=== PATIENT | male | born 1980 | race Two or more races ===

== ENCOUNTER 2020-01-25 07:29 | Emergency (ER) | payer SELFPAY ==
[~2020-01-25] VITALS: Ht 172.7 cm; Wt 84.4 kg
--- NOTE | 2020-01-25 07:37 | NUR ---
PT BIBA FROM [facility] D/T AGITATION. PT ADMITS TO METH USE. PT DELUSIONAL, INCOHERENT, VSS, RESPIRATIONS EVEN AND UNLABORED ON RA W/ NAD NOTED. PT CHANGED INTO GOWN, BELONGINGS PLACED TO LOCKER, SITTER AT BEDSIDE FOR SAFETY. WILL CONTINUE TO MONITOR
[2020-01-25] MEDS ORDERED: OLANZAPINE 5 MG TABLET ONE (07:41)
--- NOTE | 2020-01-25 07:45 | NUR ---
PT MEDICATED ORDERED
--- NOTE | 2020-01-25 07:56 | NUR ---
TELEGRAPH AND TELETYPE OPERATOR AT BEDSIDE.
[2020-01-25] MEDS ORDERED: OLANZAPINE 5 MG TABLET PO ONE (08:00)
[2020-01-25 08:11] LABS: BASOPHILS # (AUTO) 0.1 /CMM (0.0-0.2); BASOPHILS % (AUTO) 0.9 % (0.0-2.0); EOSINOPHILS % (AUTO) 1.2 % (0.0-6.0); HEMATOCRIT 50 % (39-51); LYMPHOCYTES # (AUTO) 2.4 /CMM (0.8-4.8); LYMPHOCYTES % (AUTO) 31.2 % (20.0-44.0); MEAN CORPUSCULAR HGB CONC 34 g/dl (31.0-36.0); MEAN CORPUSCULAR VOLUME 98 fL (80-96); MONOCYTES # (AUTO) 1.2 /CMM (0.1-1.30); MONOCYTES % (AUTO) 14.8 % (2.0-12.0); NEUTROPHILS # (AUTO) 4.1 /CMM (1.8-8.9); NEUTROPHILS % (AUTO) 51.9 % (43.0-81.0); PLATELET COUNT (AUTO) 305 /CMM (150-450); RED BLOOD CELL COUNT(AUTO) 5.12 MIL/uL (4.5-6.0); WHITE BLOOD COUNT (AUTO) 7.8 K/uL (4.3-11.0)
[2020-01-25] MEDS ORDERED: LORAZEPAM 1 MG TABLET ONE (08:23)
[2020-01-25] MEDS ORDERED: LORAZEPAM 1 MG TABLET PO ONE (08:30)
--- NOTE | 2020-01-25 08:33 | NUR ---
Patient refused to give a urine sample. Spit out the ativan tablets. aware.
--- NOTE | 2020-01-25 08:42 | NUR ---
Patient given written and verbal discharge instructions. Patient verbalizes understanding of instructions. Patient is ambulatory with steady gait. Refuses offer of halfway placement. Patient given list of available shelters in surrounding area.
[2020-01-25 08:44] VITALS: BP 125/66
[2020-01-25 08:45] LABS: CALCIUM, SERUM 9.9 mg/dL (8.5-10.1); CARBON DIOXIDE 28 mmol/L (21-32); CHLORIDE 103 mmol/L (98-107); CREATININE 1.3 mg/dL (0.6-1.3); GLUCOSE 113 mg/dL (74-106); POTASSIUM 4.3 mmol/L (3.5-5.1); SODIUM SERUM 138 mmol/L (136-145); UREA NITROGEN, BLOOD 13 mg/dL (7-18)
[2020-01-25 08:53] LABS: ALANINE AMINOTRANSFERASE 79 U/L (12-78); ALBUMIN 3.9 g/dL (3.4-5.0); ALCOHOL, BLOOD < 3 mg/dL (0-0); ALKALINE PHOSPHATASE 64 U/L (46-116); ASPARTATE AMINOTRANSFERASE 31 U/L (15-37); BILIRUBIN,DIRECT 0.3 mg/dL (0.0-0.2); BILIRUBIN,TOTAL 1.2 mg/dL (0.2-1.0); TOTAL PROTEIN, SERUM 8.3 g/dL (6.4-8.2)
[2020-01-25 08:54] LABS: ACETAMINOPHEN 0 ug/ml (10-30); SALICYLATE 1.2 mg/dL (2.8-20.0)
== END 2020-01-25 08:44 | disposition home or self-care (01) ==
LOC: ER 07:34
DX: F29 Unspecified psychosis not due to a substance or known physiological condition (principal); F15.10 Other stimulant abuse, uncomplicated
CPT/HCPCS: 36415; 80048; 80076; 80307; 80329; 85025; 99284; G0480

== ENCOUNTER 2020-01-25 15:53 | Emergency (ER) | payer SELFPAY ==
[~2020-01-25] VITALS: Ht 172.7 cm; Wt 86.2 kg
[2020-01-25 15:53] VITALS: BP 120/72
--- NOTE | 2020-01-25 17:57 | NUR ---
patient left without being seen by
== END 2020-01-25 17:57 | disposition left against medical advice (07) ==
LOC: ER 16:01
DX: F41.9 Anxiety disorder, unspecified (principal); Z53.21 Procedure and treatment not carried out due to patient leaving prior to being seen by health care provider